=== PATIENT | female | born 1990 | race Two or more races ===

== ENCOUNTER → 2019-01-17 | Emergency (ER) | payer OTHER ==
[~2019-01-17] VITALS: Ht 149.9 cm; Wt 58.1 kg
[~2019-01-17] MED LIST: PRENATABS RX T1 EACH
== END | disposition left against medical advice (07) ==
LOC: ER 22:30
DX: O20.0 Threatened abortion (principal)

== ENCOUNTER 2019-02-03 10:42 | Emergency (ER) | payer OTHER ==
[~2019-02-03] VITALS: Ht 149.9 cm; Wt 61.7 kg
== END 2019-02-03 15:18 | disposition home or self-care (01) ==
LOC: ER 10:42
DX: O26.891 Other specified pregnancy related conditions, first trimester (principal); S30.0XXA Contusion of lower back and pelvis, initial encounter; Z3A.01 Less than 8 weeks gestation of pregnancy; V49.9XXA Car occupant (driver) (passenger) injured in unspecified traffic accident, initial encounter; Y93.89 Activity, other specified; Y92.488 Other paved roadways as the place of occurrence of the external cause; Y99.8 Other external cause status

== ENCOUNTER → 2019-02-06 | Outpatient (CLI) | payer OTHER | END | disposition home or self-care (01) | LOC: PRENATAL 13:57 | DX: Z36.89 Encounter for other specified antenatal screening (principal) ==

== ENCOUNTER 2019-03-20 13:07 | Outpatient (CLI) | payer OTHER | END 2019-03-20 14:15 | disposition home or self-care (01) | LOC: PRENATAL 13:07 | DX: O92.20 Unspecified disorder of breast associated with pregnancy and the puerperium (principal); O35.3XX0 Maternal care for (suspected) damage to fetus from viral disease in mother, not applicable or unspecified ==

== ENCOUNTER 2019-03-28 12:47 | Outpatient (CLI) | payer OTHER | END 2019-03-30 07:55 | disposition home or self-care (01) | LOC: OBS/DEL 12:47 | DX: O26.892 Other specified pregnancy related conditions, second trimester (principal); Z04.1 Encounter for examination and observation following transport accident; O36.80X1 Pregnancy with inconclusive fetal viability, fetus 1; V49.88XA Car occupant (driver) (passenger) injured in other specified transport accidents, initial encounter; Y93.89 Activity, other specified; Y92.488 Other paved roadways as the place of occurrence of the external cause; Y99.8 Other external cause status ==

== ENCOUNTER 2019-05-27 00:11 | Inpatient (IN) | payer OTHER ==
[~2019-05-27] VITALS: Ht 149.9 cm; Wt 68.0 kg
== END 2019-05-28 14:18 | disposition home or self-care (01) | DRG 833 ==
LOC: OBS/DEL 00:11 → LDR 13:09
PROVIDERS: ADMIT Obstetrics & Gynecology Obstetrics
PROC: BY4FZZZ Ultrasonography of Third Trimester, Single Fetus (ICD-10-PCS; principal; 2019-05-27)
PROC: 4A1HXCZ Monitoring of Products of Conception, Cardiac Rate, External Approach (ICD-10-PCS; 2019-05-27)
DX: O40.3XX0 Polyhydramnios, third trimester, not applicable or unspecified (principal); O46.8X3 Other antepartum hemorrhage, third trimester

== ENCOUNTER 2019-08-11 14:50 | Outpatient (CLI) | payer OTHER | END 2019-08-11 18:16 | disposition still patient (30) | LOC: OBS/DEL 14:50 | DX: O26.843 Uterine size-date discrepancy, third trimester (principal); O36.8191 Decreased fetal movements, unspecified trimester, fetus 1 ==

== ENCOUNTER 2019-08-11 18:14 | Inpatient (IN) | payer OTHER ==
[~2019-08-11] VITALS: Ht 149.9 cm; Wt 2.7 kg
== END 2019-08-16 16:25 | disposition home or self-care (01) | DRG 788 ==
LOC: O/R 18:14 → LDR 18:14 → O/R 08-13 18:33 → OB/GYN 08-13 19:48
PROVIDERS: ADMIT Obstetrics & Gynecology Obstetrics
PROC: 10D00Z1 Extraction of Products of Conception, Low, Open Approach (ICD-10-PCS; principal; 2019-08-11)
PROC: 3E0P7VZ Introduction of Hormone into Female Reproductive, Via Natural or Artificial Opening (ICD-10-PCS; 2019-08-11)
PROC: 4A1HXCZ Monitoring of Products of Conception, Cardiac Rate, External Approach (ICD-10-PCS; 2019-08-11)
DX: O82 Encounter for cesarean delivery without indication (principal); O61.0 Failed medical induction of labor; Z3A.40 40 weeks gestation of pregnancy; Z37.0 Single live birth; Z22.330 Carrier of Group B streptococcus

== ENCOUNTER 2021-09-01 08:16 | Outpatient (CLI) | payer OTHER | END 2021-09-01 09:25 | disposition home or self-care (01) | LOC: PRENATAL 08:16 | PROVIDERS: ATTEND Obstetrics & Gynecology Maternal & Fetal Medicine | DX: O35.0XX0 Maternal care for (suspected) central nervous system malformation in fetus, not applicable or unspecified (principal); O35.3XX0 Maternal care for (suspected) damage to fetus from viral disease in mother, not applicable or unspecified; O34.219 Maternal care for unspecified type scar from previous cesarean delivery ==

== ENCOUNTER 2021-11-17 09:10 | Outpatient (CLI) | payer OTHER | END 2021-11-17 10:15 | disposition home or self-care (01) | LOC: PRENATAL 09:10 | PROVIDERS: ATTEND Obstetrics & Gynecology Maternal & Fetal Medicine | DX: O26.849 Uterine size-date discrepancy, unspecified trimester (principal); O34.219 Maternal care for unspecified type scar from previous cesarean delivery; O36.8199 Decreased fetal movements, unspecified trimester, other fetus; Z3A.32 32 weeks gestation of pregnancy ==